=== PATIENT | female | born 1965 | race Caucasian/White ===

== ENCOUNTER 2016-06-22 09:38 | Inpatient (IN) | payer OTHER ==
[2016-06-21 10:12] LABS: WBC (NOT ORDERED) (RFLEX) 0 (0-5)
[2016-06-21 10:27] LABS: BASOPHILS 0.6 %; BASOPHILS ABSOLUTE 0.05 10/3/uL (0.0-0.16); EOSINOPHILS 4.6 %; EOSINOPHILS ABSOLUTE 0.37 10/3/uL (0.0-0.53); HEMATOCRIT 38.6 % (36.0-48.0); HEMOGLOBIN 12.5 g/dL (12.0-16.0); IMMATURE GRANULOCYTES 0.1 %; IMMATURE GRANULOCYTES ABSOLUTE 0.01 10/3/uL (0.0-0.11); LYMPHOCYTES ABSOLUTE 1.22 10/3/uL (0.67-4.30); MEAN CORPUS HGB CONC 32.4 g/dL (32.0-36.0); MEAN CORPUSCULAR VOLUME 95.8 fL (80-100); MEAN PLATELET VOLUME 9.5 fL (9.2-13.0); MONOCYTES 5.2 %; MONOCYTES ABSOLUTE 0.42 10/3/uL (0.21-1.20); NEUTROPHILS 74.5 %; NEUTROPHILS ABSOLUTE 6.06 10/3/uL (2.02-8.40); PLATELET COUNT 388 10/3/uL (150-400); RBC DISTRIBUTION WIDTH 13.7 % (12.0-16.0); RED CELL COUNT 4.03 10/6/uL (4.0-5.6); WHITE BLOOD CELLS 8.1 10/3/uL (4.5-10.5)
[2016-06-21 10:29] LABS: MANUAL DIFF NO %
[2016-06-21 10:35] LABS: INTERNATIONAL NORMAL RATI 0.9 UNITS (-); PROTIME (NOT ORD) 12.2 SEC (12.0-14.5)
[2016-06-21 10:53] LABS: A/G RATIO 0.9 (0.7-1.9); ALBUMIN 3.2 G/DL (3.5-5.0); ALKALINE PHOSPHATASE 94 U/L (45-117); BUN (BLOOD UREA NITROGEN) 8 MG/DL (6-23); CALCIUM, SERUM 9.3 MG/DL (8.5-10.4); CHLORIDE, SERUM 105 MMOL/L (96-112); CO2 (CARBON DIOXIDE) 29 MMOL/L (24-34); CREATININE 0.58 MG/DL (0.55-1.02); GFR AFRICAN AMERICAN 125 ML/MIN (>=60); GFR NON AFRICAN AMERICAN 107 ML/MIN (>=60); GLOBULIN 3.4 G/DL (2.5-4.1); GLUCOSE, SERUM 103 MG/DL (60-99); POTASSIUM, SERUM 4.9 MMOL/L (3.5-5.3); SGOT(AST) 22 U/L (5-40); SGPT(ALT) 27 U/L (5-65); SODIUM, SERUM 142 MMOL/L (135-148); TOTAL BILIRUBIN 0.2 MG/DL (0-1.2); TOTAL PROTEIN 6.6 G/DL (6.0-8.5)
[2016-06-21 11:14] LABS: ASCORBIC ACID (UR NOT ORDER) NEG (NEG); BILIRUBIN, URINE NEGATIVE (NEG); KETONE, URINE NEGATIVE (NEG); LEUKOCYTE ESTERASE(NOT OR NEG (NEG)
--- NOTE | ~2016-06-22 | OP ---
Record Of Operation [facility] [address] [place]. [address] NAME: LIZ VASQUES : 65 STATUS : ADM IN [facility]#: [id number] AGE: 50 ADM/REG DATE : 06/22/16 MR#: [id number] REPORT SERV DATE: 06/22/16 DICTATED BY: ABIGAIL WALLACE JR. 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 NAME OF OPERATION: Bronchoscopy, left thoracoscopy with left parietal pleural biopsy, talc pleurodesis 7.5 g, and intercostal nerve block. SURGEON: Abigail Wallace Jr., M.D. RESIDENT SURGEON: Dr. Luiz Coleman. CODING SPECIALIST: Eran Gallagher. ANESTHESIA: General endotracheal. FINDINGS: The patient was noted to have studding of the parietal pleura throughout the chest. There was a serosanguineous effusion that was evacuated. It was about 1500 mL of fluid. The parietal pleural biopsies sent for permanent pathology. There was good reexpansion of both lobes of the lung. DETAILS OF OPERATION: After adequate anesthesia, the patient was intubated. Bronchoscopy was performed noting no endobronchial lesions to contraindication resection. A left-sided double lumen endotracheal tube was then placed. The patient was then positioned in the right lateral decubitus position with the left chest was prepped and draped in a routine sterile fashion. A small incision was made overlying the lower intercostal space. Through this single incision site, the fluid was evacuated. The chest was explored noting the above findings. The parietal pleura was biopsied and sent for permanent analysis. A 7.5 g of talc was instilled in the chest cavity. A 32-Greek chest tube was placed. An intercostal block was also performed. The lung was reinflated in which she had a complete re-expansion. The chest tube was secured with silk suture. The trocar sites were closed with running Vicryl sutures. The skin was closed with running monofilament suture. A Dermabond dressing was applied. Then the procedure was terminated at this point. The patient tolerated the procedure well, taken back to the recovery room in stable condition. TUYET/DINA Abigail Wallace Jr., M.D. Record Of [address] [address] NAME: LIZ VASQUES : 65 STATUS : ADM IN PAT#: [id number] AGE: 50 ADM/REG DATE : 06/22/16 MR#: [id number] REPORT SERV DATE: 06/22/16 DICTATED BY: ABIGAIL WALLACE JR. DATE: 06/22/16 REPORT STATUS : Draft TRANSCRIBED BY: DINA DATE: 06/22/16 / [id number] CC: Svetlana Ballesteros Jr.
--- NOTE | ~2016-06-22 | DS ---
Discharge Summary [facility] [address] [place]. [address] NAME: LIZ VASQUES : 65 STATUS : DIS IN PAT#: [id number] AGE: 50 ADM/REG DATE : 06/22/16 MR#: [id number] REPORT SERV DATE: 07/05/16 DICTATED BY: ABIGAIL WALLACE JR. DATE: 07/04/16 REPORT STATUS : Draft TRANSCRIBED BY: DINA DATE: 07/04/16 Data Collection from hospitalization DISCHARGE DIAGNOSES: 1. 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 2. Recurrent malignant pleural effusion with history of multiple thoracenteses. 3. Tobacco use. 4. History of small right cerebellar metastasis. CONSULTATIONS: None. PROCEDURES PERFORMED: Bronchoscopy, left thoracoscopy with left parietal pleural biopsy, talc pleurodesis 7.5 g, and intercostal nerve block, 06/22/2016. PATHOLOGY: Pleura, left pleural biopsy-metastatic adenocarcinoma-focally mucin producing. DISCHARGE MEDICATIONS: Zyrtec 10 mg daily as needed, vitamin D3 2000 units daily, Cymbalta 30 mg daily, [place] 10/325 one tablet at bedtime, Advil 200 mg every six hours as needed, acidophilus one tablet daily, multivitamins one tablet daily, Percocet 5/325 one to two tablets every four hours as needed, Ultram 50 mg every four hours as needed. CONDITION AT DISCHARGE: Stable. DISPOSITION: The patient was discharged home on a regular diet with activities as instructed. She would follow up with me, 07/25/2016. HOSPITAL COURSE: This is a 50-year-old female, who has newly diagnosed left lower lobe adenocarcinoma. This had been identified after she failed treatment for presumed pneumonia. She had a positive left pleural effusion making her a stage IV. She also recently underwent MRI of the brain that showed metastatic lesions. She had undergone left-sided thoracentesis on two separate occasions. The most recent a week prior to this admission, at which point they drained over a liter of bloody fluid. It was felt that she would need to undergo surgical intervention at this time and she was admitted to the hospital for further evaluation and treatment. Upon admission, she was taken to the operating room, where she underwent the above-mentioned procedure. She tolerated this well and there were no complications. On postop day #1, she was doing well. Her pain was controlled. Chest tube was in place. We encouraged her to ambulate. She continued to have good pain control with the epidural. On postop day 2, her wounds were clean, dry, and intact. She had decreased breath sounds in the lung bases. The epidural catheter was removed and the tip was intact. Discharge planning was performed. On 06/25/2016, discharge instructions were given. Due to her improved and stable condition, she was discharged home with the above-stated instructions. Information collected by: Karli Castillo I submit the above information as my discharge summary. Discharge Summary [facility] [id number] [place]. [address] NAME: LIZ VASQUES : 65 STATUS : DIS IN PAT#: [id number] AGE: 50 ADM/REG DATE : 06/22/16 MR#: [id number] REPORT SERV DATE: 07/05/16 DICTATED BY: ABIGAIL WALLACE JR. DATE: 07/04/16 REPORT STATUS : Draft TRANSCRIBED BY: DINA DATE: 07/04/16 TG/DINA Abigail Wallace Jr., M.D. / [id number] CC: Svetlana Ballesteros Jr., TYE
[~2016-06-22 09:38] MED LIST: ACIDOPHILU2 PO; ADVIL PO; ALEVE220 MG PO; CYMBALTA30 PO; MULTIPLE VIT PO; NORCO1 TAB PO; ULTRAM50 PO; VITAMIN D31000 UNIT PO; ZYRTEC ALLGY10 MG PO
[2016-06-22 19:11] LABS: BASOPHILS 0.5 %; BASOPHILS ABSOLUTE 0.03 10/3/uL (0.0-0.16); EOSINOPHILS 5.7 %; EOSINOPHILS ABSOLUTE 0.36 10/3/uL (0.0-0.53); HEMATOCRIT 39.1 % (36.0-48.0); HEMOGLOBIN 12.8 g/dL (12.0-16.0); IMMATURE GRANULOCYTES 0.3 %; IMMATURE GRANULOCYTES ABSOLUTE 0.02 10/3/uL (0.0-0.11); LYMPHOCYTES 23.3 %; LYMPHOCYTES ABSOLUTE 1.47 10/3/uL (0.67-4.30); MANUAL DIFF NO %; MEAN CORPUS HGB CONC 32.7 g/dL (32.0-36.0); MEAN CORPUSCULAR HEMOGLOB 31.5 pg (26.0-34.0); MEAN CORPUSCULAR VOLUME 96.3 fL (80-100); MEAN PLATELET VOLUME 9.6 fL (9.2-13.0); MONOCYTES 3.6 %; MONOCYTES ABSOLUTE 0.23 10/3/uL (0.21-1.20); NEUTROPHILS 66.6 %; NEUTROPHILS ABSOLUTE 4.21 10/3/uL (2.02-8.40); PLATELET COUNT 348 10/3/uL (150-400); RBC DISTRIBUTION WIDTH 13.7 % (12.0-16.0); RED CELL COUNT 4.06 10/6/uL (4.0-5.6); WHITE BLOOD CELLS 6.3 10/3/uL (4.5-10.5)
[2016-06-22 19:26] LABS: BUN (BLOOD UREA NITROGEN) 7 MG/DL (6-23); CALCIUM, SERUM 8.7 MG/DL (8.5-10.4); CHLORIDE, SERUM 107 MMOL/L (96-112); CO2 (CARBON DIOXIDE) 27 MMOL/L (24-34); CREATININE 0.66 MG/DL (0.55-1.02); GFR AFRICAN AMERICAN 119 ML/MIN (>=60); GFR NON AFRICAN AMERICAN 103 ML/MIN (>=60); GLUCOSE, SERUM 107 MG/DL (60-99); POTASSIUM, SERUM 4.1 MMOL/L (3.5-5.3); SODIUM, SERUM 141 MMOL/L (135-148)
[2016-06-23 06:33] LABS: BASOPHILS 0.1 %; BASOPHILS ABSOLUTE 0.01 10/3/uL (0.0-0.16); EOSINOPHILS 0 %; HEMOGLOBIN 11.3 g/dL (12.0-16.0); IMMATURE GRANULOCYTES 0.3 %; IMMATURE GRANULOCYTES ABSOLUTE 0.03 10/3/uL (0.0-0.11); LYMPHOCYTES 4.5 %; LYMPHOCYTES ABSOLUTE 0.54 10/3/uL (0.67-4.30); MEAN CORPUS HGB CONC 32.2 g/dL (32.0-36.0); MEAN CORPUSCULAR HEMOGLOB 30.6 pg (26.0-34.0); MEAN CORPUSCULAR VOLUME 95.1 fL (80-100); MEAN PLATELET VOLUME 9.6 fL (9.2-13.0); MONOCYTES 3.9 %; MONOCYTES ABSOLUTE 0.46 10/3/uL (0.21-1.20); NEUTROPHILS 91.2 %; NEUTROPHILS ABSOLUTE 10.86 10/3/uL (2.02-8.40); PLATELET COUNT 368 10/3/uL (150-400); RBC DISTRIBUTION WIDTH 13.6 % (12.0-16.0); RED CELL COUNT 3.69 10/6/uL (4.0-5.6)
[2016-06-23 06:38] LABS: HEMATOCRIT 35.1 % (36.0-48.0); MANUAL DIFF NO %; WHITE BLOOD CELLS 11.9 10/3/uL (4.5-10.5)
[2016-06-23 06:56] LABS: BUN (BLOOD UREA NITROGEN) 9 MG/DL (6-23); CALCIUM, SERUM 8.5 MG/DL (8.5-10.4); CHLORIDE, SERUM 106 MMOL/L (96-112); CREATININE 0.66 MG/DL (0.55-1.02); GFR AFRICAN AMERICAN 119 ML/MIN (>=60); GFR NON AFRICAN AMERICAN 103 ML/MIN (>=60); POTASSIUM, SERUM 4.3 MMOL/L (3.5-5.3); SODIUM, SERUM 140 MMOL/L (135-148)
[2016-06-23 06:57] LABS: CO2 (CARBON DIOXIDE) 22 MMOL/L (24-34); GLUCOSE, SERUM 181 MG/DL (60-99)
[2016-06-24 06:58] LABS: CALCIUM, SERUM 8.6 MG/DL (8.5-10.4); CHLORIDE, SERUM 105 MMOL/L (96-112); CO2 (CARBON DIOXIDE) 25 MMOL/L (24-34); CREATININE 0.67 MG/DL (0.55-1.02); GFR AFRICAN AMERICAN 119 ML/MIN (>=60); GFR NON AFRICAN AMERICAN 102 ML/MIN (>=60); SODIUM, SERUM 140 MMOL/L (135-148)
[2016-06-24 07:02] LABS: BUN (BLOOD UREA NITROGEN) 13 MG/DL (6-23); GLUCOSE, SERUM 117 MG/DL (60-99)
[2016-06-25] MEDS ORDERED: PCET PO (09:07)
[2016-11-12] MEDS ORDERED: ULTRAM50 PO (22:22)
[2016-11-12] MEDS ORDERED: IBU-200200 MG PO (22:22)
[2016-11-12] MEDS ORDERED: VITAMIN D400 UNI1 PO (22:23)
[2016-11-12] MEDS ORDERED: FOLIC PO (22:23)
[2016-11-12] MEDS ORDERED: CYMBALTA30 PO (22:23)
[2016-11-19] MEDS ORDERED: LIDODERM TOP (13:35)
[2016-11-19] MEDS ORDERED: PCET PO (13:37)
[2016-11-19] MEDS ORDERED: OXYCONTIN60 MG PO (13:38)
[2016-11-19] MEDS ORDERED: DSS PO (13:57)
[2016-12-27] MEDS ORDERED: CYMBALTA30 PO (04:04)
[2016-12-27] MEDS ORDERED: KCL20UDL PO (04:04)
[2016-12-27] MEDS ORDERED: VITAMIN D3 OTC PO (04:05)
[2016-12-27] MEDS ORDERED: FOLIC PO (04:05)
[2016-12-27] MEDS ORDERED: OXYCONTIN60 MG PO (04:07)
[2016-12-27] MEDS ORDERED: OXYCOD PO (04:08)
[2016-12-27] MEDS ORDERED: MARI5 PO (04:08)
[2016-12-27] MEDS ORDERED: OPDIVO IV (04:09)
== END 2016-06-25 09:41 | disposition home or self-care (01) | DRG 167 ==
LOC: SDC/OF 09:38 → 5NO 20:36
PROVIDERS: Nurse Practitioner Acute Care; Thoracic Surgery (Cardiothoracic Vascular Surgery)
PROC: 3E0L3GC Introduction of Other Therapeutic Substance into Pleural Cavity, Percutaneous Approach (ICD-10-PCS; 2016-06-22)
PROC: 3E0T3BZ Introduction of Anesthetic Agent into Peripheral Nerves and Plexi, Percutaneous Approach (ICD-10-PCS; 2016-06-22)
PROC: 0BBP4ZX Excision of Left Pleura, Percutaneous Endoscopic Approach, Diagnostic (ICD-10-PCS; principal; 2016-06-22 12:30)
DX: C34.92 Malignant neoplasm of unspecified part of left bronchus or lung (principal); J91.0 Malignant pleural effusion; C79.31 Secondary malignant neoplasm of brain; F17.210 Nicotine dependence, cigarettes, uncomplicated
CPT/HCPCS: 36415; 71010; 71020; 80048; 80053; 81001; 82962; 83036; 84703; 85025; 85610; 86850; 86900; 86901; 87641; 88305; 88313; 88341; 88342; 88344; 93005; 94640; A9270-GY; J0690; J1170; J1885; J2250; J2370; J2405; J2710; J2795; J3010